=== PATIENT | female | born 1960 | race Caucasian/White ===

== ENCOUNTER 2019-11-04 01:20 | Emergency (ER) | payer MEDICARE, MEDICAID ==
[~2019-11-04] VITALS: Ht 144.8 cm; Wt 76.8 kg
[~2019-11-04 01:20] MED LIST: ALBU18HF2 INH; BUDE10.2 INH; IPRA3AMP31 IH; LOSA25TA96 PO; ONDA4TAB6 PO; SIME125C43 PO
[2019-11-04 01:22] VITALS: BP 171/86
[2019-11-04] MEDS ORDERED: bisacodyl 10mg suppository rectal RC STA (01:54)
[2019-11-04] MEDS ORDERED: magnesium citrate 296ml oral solution PO ONE (01:55)
[2019-11-04] MEDS ORDERED: dexamethasone 4mg tablet PO ONE (01:55)
[2019-11-04] MEDS ORDERED: ALBU6.7H9 INH (01:57)
[2019-11-04] MEDS ORDERED: PRED20TA PO (01:57)
[2019-11-04] MEDS ORDERED: BISA10SU60 RC (01:57)
[2019-11-04] MEDS ORDERED: albuterol 2.5 MG/3 ML nebule CONTNEB PRN ×2 (02:00→02:20)
[2019-11-04] MEDS ORDERED: POLY17PO10 PO (02:11)
== END 2019-11-04 02:30 | disposition home or self-care (01) ==
LOC: ER 01:21
DX: K59.00 Constipation, unspecified (principal); J45.901 Unspecified asthma with (acute) exacerbation; I10 Essential (primary) hypertension; K21.9 Gastro-esophageal reflux disease without esophagitis; Z90.49 Acquired absence of other specified parts of digestive tract; Z98.890 Other specified postprocedural states; Z91.013 Allergy to seafood; Z79.899 Other long term (current) drug therapy
CPT/HCPCS: 74018; 99284

== ENCOUNTER 2019-12-09 20:09 | Emergency (ER) | payer MEDICARE, MEDICAID ==
[~2019-12-09] VITALS: Ht 144.8 cm; Wt 79.5 kg
[~2019-12-09 20:09] MED LIST changes: +ALBU6.7H9 INH; +BISA10SU60 RC
[2019-12-09 20:42] LABS: D-DIMER 0.37 MG/L FEU (0-0.50)
[2019-12-09 20:57] LABS: ALANINE AMINOTRANSFERASE 59 U/L (12-78); ALBUMIN 3.9 G/DL (3.4-5.0); ALKALINE PHOSPHATASE 80 IU/L (46-116); ANION GAP 9 (8-16); ASPARTATE AMINO TRANSFERASE 40 U/L (10-37); BILIRUBIN,TOTAL 0.6 MG/DL (0.1-1.0); BLOOD UREA NITROGEN 11 MG/DL (7-18); BUN/CREATININE RATIO 12.2 (6.6-38.0); CALCIUM 9.4 MG/DL (8.5-10.1); CHLORIDE 96 MMOL/L (99-107); GLUCOSE 93 MG/DL (70-104); SODIUM 134 MMOL/L (135-145); TOTAL CARBON DIOXIDE 29.2 MMOL/L (24-32); TOTAL PROTEIN 7.8 G/DL (6.4-8.2); eGFR 64 ML/MIN
[2019-12-09 21:00] LABS: POTASSIUM 2.7 MMOL/L (3.5-5.1)
[2019-12-09 21:21] LABS: BASOPHILS # (AUTO) 0.1 X10'3 (0-0.2); BASOPHILS % (AUTO) 1.4 % (0-1); EOSINOPHILS # (AUTO) 0.1 X10'3 (0-0.9); EOSINOPHILS % (AUTO) 1.4 % (0-6); HEMATOCRIT 45.3 % (35.0-45.0); HEMOGLOBIN 15.9 g/dl (12.0-16.0); LYMPHOCYTES # (AUTO) 2.1 X10'3 (1.1-4.8); LYMPHOCYTES % (AUTO) 34.2 % (21-51); MEAN CORPUSCULAR HEMOGLOBIN 31.1 PG (27.0-31.0); MEAN CORPUSCULAR HGB CONC 35.1 g/dL (33.0-36.5); MEAN CORPUSCULAR VOLUME 88.6 FL (78-98); MEAN PLATELET VOLUME 9.7 FL (7.4-10.4); MONOCYTES # (AUTO) 0.7 X10'3 (0-0.9); MONOCYTES % (AUTO) 10.7 % (2-12); NEUTROPHILS # (AUTO) 3.3 X10'3 (1.8-7.7); NEUTROPHILS % (AUTO) 52.3 % (42-75); PLATELET COUNT 232 X10'3 (140-440); RED BLOOD COUNT 5.11 X10'6 (4.20-5.60); RED CELL DISTRIBUTION WIDTH 13.4 % (11.5-14.5); WHITE BLOOD COUNT 6.2 X10'3 (4.5-11.0)
[2019-12-09] MEDS ORDERED: potassium Cl 20 mEq SR tablet PO ONE (21:30)
[2019-12-09] MEDS ORDERED: magnesium oxide 400mg tablet PO ONE ×2 (21:30→21:55)
[2019-12-09] MEDS ORDERED: potassium Cl 20 mEq SR tablet PO STA (21:55)
[2019-12-09] MEDS ORDERED: POTASSIUM BICARB 20meq eff tab 20 MEQ TABLET.EFF PO STA (22:00)
[2019-12-09] MEDS ORDERED: POTA20TA19 PO (22:20)
[2019-12-09 22:47] VITALS: BP 136/77
== END 2019-12-09 22:54 | disposition home or self-care (01) ==
LOC: ER 20:10
DX: R00.2 Palpitations (principal); E87.6 Hypokalemia; J06.9 Acute upper respiratory infection, unspecified; I10 Essential (primary) hypertension; J45.909 Unspecified asthma, uncomplicated; K21.9 Gastro-esophageal reflux disease without esophagitis; Z90.49 Acquired absence of other specified parts of digestive tract; Z98.890 Other specified postprocedural states; Z91.013 Allergy to seafood; Z79.899 Other long term (current) drug therapy
CPT/HCPCS: 36415; 71045; 80053; 83735; 84439; 84443; 84484; 85025; 85379; 93005; 99284

== ENCOUNTER 2020-11-04 17:50 | Emergency (ER) | payer MEDICAID, MEDICARE ==
[~2020-11-04] VITALS: Ht 144.8 cm; Wt 76.4 kg
[2020-11-04 18:07] VITALS: BP 166/77
[2020-11-04 18:47] LABS: COLOR,URINE STRAW (Yellow); GLUCOSE, URINE NEGATIVE (Neg); KETONES,URINE NEGATIVE (Neg); LEUKOCYTE ESTERASE ,URINE SMALL (Neg); NITRITES, URINE NEGATIVE (Neg); OCCULT BLOOD,URINE NEGATIVE (Neg); PH,URINE 7.5 (4.8-8.0); PROTEIN,URINE NEGATIVE (Neg); UROBILINOGEN,URINE 0.2 E.U/dL (0.2-1.0)
[2020-11-04 18:49] LABS: CLARITY,URINE SLIGHTLY CLOUDY (Clear); UA COLLECTION TYPE CLN CATCH MIDSTREAM
[2020-11-04 18:54] LABS: BACTERIA,URINE FEW /HPF (Neg); MUCUS STRANDS FEW /LPF (Neg); RBC,URINE NONE SEEN /HPF (0-2); SQUAMOUS EPITHELIAL CELL,UR MANY /LPF (FEW); WBC,URINE 0-4 /HPF (0-4)
[2020-11-04] MEDS ORDERED: ketorolac tromethamine 15mg/ml inj. IM ONE (19:10)
[2020-11-04 19:41] LABS: BASOPHILS # (AUTO) 0.1 X10'3 (0-0.2); EOSINOPHILS # (AUTO) 0.3 X10'3 (0-0.9); EOSINOPHILS % (AUTO) 3.8 % (0-6); HEMATOCRIT 43.8 % (35.0-45.0); LYMPHOCYTES # (AUTO) 1.9 X10'3 (1.1-4.8); LYMPHOCYTES % (AUTO) 27.1 % (21-51); MEAN CORPUSCULAR HEMOGLOBIN 31.2 PG (27.0-31.0); MEAN CORPUSCULAR HGB CONC 34.4 g/dL (33.0-36.5); MEAN CORPUSCULAR VOLUME 90.7 FL (78-98); MEAN PLATELET VOLUME 9.5 FL (7.4-10.4); MONOCYTES # (AUTO) 0.5 X10'3 (0-0.9); MONOCYTES % (AUTO) 6.5 % (2-12); NEUTROPHILS # (AUTO) 4.4 X10'3 (1.8-7.7); NEUTROPHILS % (AUTO) 61.6 % (42-75); PLATELET COUNT 272 X10'3 (140-440); RED BLOOD COUNT 4.83 X10'6 (4.20-5.60); RED CELL DISTRIBUTION WIDTH 12.5 % (11.5-14.5); WHITE BLOOD COUNT 7.1 X10'3 (4.5-11.0)
[2020-11-04 19:53] LABS: ALANINE AMINOTRANSFERASE 70 U/L (12-78); ALBUMIN 4.1 G/DL (3.4-5.0); ALBUMIN/GLOBULIN RATIO 1.1 (1.1-1.5); ALKALINE PHOSPHATASE 86 IU/L (46-116); ANION GAP 7 (8-16); ASPARTATE AMINO TRANSFERASE 23 U/L (10-37); BILIRUBIN,TOTAL 0.3 MG/DL (0.1-1.0); BLOOD UREA NITROGEN 9 MG/DL (7-18); BUN/CREATININE RATIO 8.3 (6.6-38.0); CALCIUM 9.8 MG/DL (8.5-10.1); CHLORIDE 105 MMOL/L (99-107); CREATININE 1.09 MG/DL (0.40-0.90); GLUCOSE 113 MG/DL (70-104); POTASSIUM 3.5 MMOL/L (3.5-5.1); SODIUM 144 MMOL/L (135-145); TOTAL CARBON DIOXIDE 31.9 MMOL/L (24-32); TOTAL PROTEIN 7.8 G/DL (6.4-8.2); eGFR 51 ML/MIN
[2020-11-04 20:21] LABS: CLARITY,URINE CLEAR (Clear); COLOR,URINE YELLOW (Yellow); GLUCOSE, URINE NEGATIVE (Neg); KETONES,URINE NEGATIVE (Neg); LEUKOCYTE ESTERASE ,URINE TRACE (Neg); NITRITES, URINE NEGATIVE (Neg); OCCULT BLOOD,URINE NEGATIVE (Neg); PH,URINE 7.5 (4.8-8.0); PROTEIN,URINE NEGATIVE (Neg); UA COLLECTION TYPE CLN CATCH MIDSTREAM; UROBILINOGEN,URINE 0.2 E.U/dL (0.2-1.0)
[2020-11-04 20:33] LABS: AMORPHOUS PHOSPHATES 1+; BACTERIA,URINE FEW /HPF (Neg); MUCUS STRANDS NONE SEEN /LPF (Neg); RBC,URINE 0-2 /HPF (0-2); SQUAMOUS EPITHELIAL CELL,UR FEW /LPF (FEW); WBC,URINE 0-4 /HPF (0-4)
== END 2020-11-04 20:45 | disposition home or self-care (01) ==
LOC: ER 17:51
DX: R10.84 Generalized abdominal pain (principal); M54.5 Low back pain; I10 Essential (primary) hypertension; J45.909 Unspecified asthma, uncomplicated; K21.9 Gastro-esophageal reflux disease without esophagitis; Z90.89 Acquired absence of other organs; Z98.890 Other specified postprocedural states; Z91.013 Allergy to seafood; Z79.899 Other long term (current) drug therapy
CPT/HCPCS: 36415; 74176; 80053; 81001; 85025; 87088; 99284

== ENCOUNTER 2021-03-31 09:36 | Emergency (ER) | payer BC, MEDICARE, SELFPAY ==
[~2021-03-31] VITALS: Ht 144.8 cm; Wt 155.0 kg
--- NOTE | 2021-03-31 10:04 | NUR ---
TO XRAY WITH CARLOS ROLAND
[2021-03-31] MEDS ORDERED: BUPIVAcaine/PF 2.5 mg/ml (0.25%) 30ml vial IJ ONE (10:40)
[2021-03-31] MEDS ORDERED: BUPIVAcaine/PF 2.5mg/ml (0.25%) 10ml vial IJ ONE (10:45)
[2021-03-31] MEDS ORDERED: ketorolac tromethamine 15mg/ml inj. IM ONE (10:45)
[2021-03-31 10:56] LABS: HEMOGLOBIN 14.9 g/dl (12.0-16.0); PLATELET COUNT 243 X10'3 (140-440)
[2021-03-31 10:59] LABS: BASOPHILS # (AUTO) 0.1 X10'3 (0-0.2); BASOPHILS % (AUTO) 0.8 % (0-1); EOSINOPHILS # (AUTO) 0.2 X10'3 (0-0.9); EOSINOPHILS % (AUTO) 3.6 % (0-6); HEMATOCRIT 42.8 % (35.0-45.0); LYMPHOCYTES % (AUTO) 15.1 % (21-51); MEAN CORPUSCULAR HEMOGLOBIN 32.2 PG (27.0-31.0); MEAN CORPUSCULAR HGB CONC 34.7 g/dL (33.0-36.5); MEAN CORPUSCULAR VOLUME 92.7 FL (78-98); MEAN PLATELET VOLUME 9.1 FL (7.4-10.4); MONOCYTES # (AUTO) 0.3 X10'3 (0-0.9); MONOCYTES % (AUTO) 4.6 % (2-12); NEUTROPHILS # (AUTO) 5.1 X10'3 (1.8-7.7); NEUTROPHILS % (AUTO) 75.9 % (42-75); RED BLOOD COUNT 4.62 X10'6 (4.20-5.60); RED CELL DISTRIBUTION WIDTH 12.9 % (11.5-14.5); WHITE BLOOD COUNT 6.7 X10'3 (4.5-11.0)
[2021-03-31 11:08] VITALS: BP 150/85
[2021-03-31 11:11] LABS: ALANINE AMINOTRANSFERASE 56 U/L (12-78); ALBUMIN 3.7 G/DL (3.4-5.0); ALBUMIN/GLOBULIN RATIO 1.1 (1.1-1.5); ALKALINE PHOSPHATASE 79 IU/L (46-116); ANION GAP 9 (8-16); ASPARTATE AMINO TRANSFERASE 29 U/L (10-37); BILIRUBIN,TOTAL 0.5 MG/DL (0.1-1.0); BLOOD UREA NITROGEN 12 MG/DL (7-18); BUN/CREATININE RATIO 15.6 (6.6-38.0); CALCIUM 9.1 MG/DL (8.5-10.1); CHLORIDE 105 MMOL/L (99-107); CREATININE 0.77 MG/DL (0.40-0.90); GLUCOSE 117 MG/DL (70-104); POTASSIUM 3.9 MMOL/L (3.5-5.1); SODIUM 143 MMOL/L (135-145); TOTAL CARBON DIOXIDE 28.8 MMOL/L (24-32); eGFR 76 ML/MIN
[2021-03-31 11:14] LABS: TROPONIN I < 0.04 NG/ML (0.0-0.05)
--- NOTE | 2021-03-31 12:34 | NUR ---
Right arm sling applied to patient with instructions on adjustments.
[2021-03-31] MEDS ORDERED: HYDR-3965 PO (12:55)
== END 2021-03-31 13:06 | disposition home or self-care (01) ==
LOC: ER 09:36
DX: T14.8XXA Other injury of unspecified body region, initial encounter (principal); M54.5 Low back pain; I10 Essential (primary) hypertension; J45.909 Unspecified asthma, uncomplicated; K21.9 Gastro-esophageal reflux disease without esophagitis; Z90.89 Acquired absence of other organs; Z98.890 Other specified postprocedural states; Z91.013 Allergy to seafood; Z79.899 Other long term (current) drug therapy; W01.0XXA Fall on same level from slipping, tripping and stumbling without subsequent striking against object, initial encounter; Y93.01 Activity, walking, marching and hiking; Y92.89 Other specified places as the place of occurrence of the external cause; Y99.8 Other external cause status
CPT/HCPCS: 20553; 36415; 71046; 73030; 73090; 80053; 84484; 85025; 85610; 93005; 96372; 99285; J1885

== ENCOUNTER 2023-05-08 01:06 | Emergency (ER) | payer BC, SELFPAY ==
[~2023-05-08] VITALS: Ht 170.2 cm; Wt 72.7 kg
[~2023-05-08 01:06] MED LIST changes: +ALBU6.7H14 INH; -ALBU6.7H9 INH
[2023-05-08 01:33] LABS: BASOPHILS # (AUTO) 0.1 X10'3 (0-0.2); BASOPHILS % (AUTO) 0.9 % (0-1); EOSINOPHILS # (AUTO) 0.5 X10'3 (0-0.9); EOSINOPHILS % (AUTO) 6.8 % (0-6); HEMOGLOBIN 15.8 g/dl (12.0-16.0); LYMPHOCYTES # (AUTO) 2.1 X10'3 (1.1-4.8); LYMPHOCYTES % (AUTO) 27.3 % (21-51); MEAN CORPUSCULAR HEMOGLOBIN 31.3 PG (27.0-31.0); MEAN CORPUSCULAR HGB CONC 34.4 g/dL (33.0-36.5); MEAN PLATELET VOLUME 8.6 FL (7.4-10.4); MONOCYTES # (AUTO) 0.5 X10'3 (0-0.9); MONOCYTES % (AUTO) 5.9 % (2-12); NEUTROPHILS # (AUTO) 4.6 X10'3 (1.8-7.7); NEUTROPHILS % (AUTO) 59.1 % (42-75); PLATELET COUNT 230 X10'3 (140-440); RED BLOOD COUNT 5.05 X10'6 (4.20-5.60); WHITE BLOOD COUNT 7.8 X10'3 (4.5-11.0)
[2023-05-08] MEDS ORDERED: normal saline 1000ML IV soln IVB ONE (01:35)
[2023-05-08] MEDS ORDERED: morphine 4 MG/ML inj SYRINge IV ONE (01:35)
[2023-05-08 01:39] LABS: ALANINE AMINOTRANSFERASE 40 U/L (12-78); ALKALINE PHOSPHATASE 98 IU/L (46-116); ANION GAP 12 (8-16); ASPARTATE AMINO TRANSFERASE 20 U/L (10-37); BILIRUBIN,TOTAL 0.5 MG/DL (0.1-1.0); BLOOD UREA NITROGEN 11 MG/DL (7-18); BUN/CREATININE RATIO 13.6 (10.0-20.0); CALCIUM 9.2 MG/DL (8.5-10.1); CHLORIDE 104 MMOL/L (99-107); CREATININE 0.81 MG/DL (0.40-0.90); GLUCOSE 111 MG/DL (70-104); LIPASE 123 U/L (73-393); POTASSIUM 3.6 MMOL/L (3.5-5.1); SODIUM 143 MMOL/L (135-145); TOTAL CARBON DIOXIDE 26.8 MMOL/L (24-32); TOTAL PROTEIN 7.9 G/DL (6.4-8.2); eGFR 71 ML/MIN
[2023-05-08] MEDS ORDERED: iohexol 300mg/ml 100ml inj. ONE (01:53)
--- NOTE | 2023-05-08 02:00 | NUR ---
Patient to CT
[2023-05-08 02:34] LABS: CLARITY,URINE SLIGHTLY CLOUDY (Clear); COLOR,URINE STRAW (Yellow); GLUCOSE, URINE NEGATIVE (Neg); KETONES,URINE NEGATIVE (Neg); LEUKOCYTE ESTERASE ,URINE NEGATIVE (Neg); NITRITES, URINE NEGATIVE (Neg); OCCULT BLOOD,URINE NEGATIVE (Neg); PH,URINE 7.5 (4.8-8.0); PROTEIN,URINE NEGATIVE (Neg); UROBILINOGEN,URINE 0.2 E.U/dL (0.2-1.0)
[2023-05-08 02:43] LABS: UA COLLECTION TYPE CLN CATCH MIDSTREAM
[2023-05-08 02:44] LABS: BACTERIA,URINE NONE SEEN /HPF (Neg); RBC,URINE 0-2 /HPF (0-2); SQUAMOUS EPITHELIAL CELL,UR MANY /LPF (FEW); TRANSITIONAL EPI CELLS,URINE FEW /HPF; WBC,URINE 0-4 /HPF (0-4)
[2023-05-08 04:39] VITALS: BP 159/89
== END 2023-05-08 04:42 | disposition home or self-care (01) ==
LOC: ER 03:27
DX: R10.32 Left lower quadrant pain (principal); M54.2 Cervicalgia; R14.0 Abdominal distension (gaseous); J45.909 Unspecified asthma, uncomplicated; K21.9 Gastro-esophageal reflux disease without esophagitis; I10 Essential (primary) hypertension; Z90.49 Acquired absence of other specified parts of digestive tract; Z91.013 Allergy to seafood; Z79.899 Other long term (current) drug therapy
CPT/HCPCS: 36415; 74177; 80053; 81001; 83690; 85025; 96360; 99285; J3490; J7030; Q9967

== ENCOUNTER 2023-11-06 15:39 | Emergency (ER) | payer BC, SELFPAY ==
[~2023-11-06] VITALS: Ht 175.3 cm; Wt 72.7 kg
[~2023-11-06 15:39] MED LIST changes: +LOSA-415 PO; -LOSA25TA96 PO
[2023-11-06 16:02] VITALS: TEMP 97
[2023-11-06 18:03] VITALS: BP 157/88; PULSE 77; RESP 16; O2SAT 98
== END 2023-11-06 18:05 | disposition home or self-care (01) ==
LOC: ER 15:40
DX: R09.A2 Foreign body sensation, throat (principal); R09.89 Other specified symptoms and signs involving the circulatory and respiratory systems; I10 Essential (primary) hypertension; J45.909 Unspecified asthma, uncomplicated; Z90.49 Acquired absence of other specified parts of digestive tract; Z91.013 Allergy to seafood; Z79.899 Other long term (current) drug therapy
CPT/HCPCS: 70360; 99283

== ENCOUNTER 2025-03-12 16:52 | Emergency (ER) | payer BC, SELFPAY ==
[~2025-03-12] VITALS: Ht 144.8 cm; Wt 70.5 kg
--- NOTE | 2025-03-12 16:58 | ELECTROCARDIOGRAPH REPORT ---
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 Saman Chester Measurements Intervals [place] Rate: 90 P: 54 PA: 177 QRS: 40 QRSD: 84 T: 57 QT: 344 QTc: 421 Interpretive Statements Sinus rhythm Anterior infarct, old Electronically Signed On 03-12-2025 18:39:[address] Saman Chester Please click the below link to view image of tracing.
--- NOTE | 2025-03-12 17:42 | RADIOLOGY REPORT ---
CHEST RADIOGRAPH Indication: CP Technique: Single frontal view of the chest was obtained Comparison: CHEST,SINGLE VIEW on DOS: 12/09/19 FINDINGS: Lines and Tubes: None Lungs: No focal consolidation. Pleura: No effusion. No pneumothorax. Cardiomediastinal contours: Unremarkable Bones: No acute osseous abnormality. IMPRESSION: 1. No acute cardiopulmonary disease. 2. No significant change from 03/31/2021.
[2025-03-12 18:04] LABS: BASOPHILS # (AUTO) 0.1 X10'3 (0-0.2); EOSINOPHILS # (AUTO) 0.4 X10'3 (0-0.9); EOSINOPHILS % (AUTO) 5.1 % (0-6); HEMATOCRIT 42.8 % (35.0-45.0); HEMOGLOBIN 14.7 g/dl (12.0-16.0); LYMPHOCYTES # (AUTO) 2.3 X10'3 (1.1-4.8); LYMPHOCYTES % (AUTO) 27.6 % (21-51); MEAN CORPUSCULAR HEMOGLOBIN 31.4 PG (27.0-31.0); MEAN CORPUSCULAR HGB CONC 34.3 g/dL (33.0-36.5); MEAN CORPUSCULAR VOLUME 91.5 FL (78-98); MONOCYTES # (AUTO) 0.5 X10'3 (0-0.9); MONOCYTES % (AUTO) 5.7 % (2-12); NEUTROPHILS % (AUTO) 60.6 % (42-75); PLATELET COUNT 329 X10'3 (140-440); RED BLOOD COUNT 4.68 X10'6 (4.20-5.60); RED CELL DISTRIBUTION WIDTH 13.1 % (11.5-14.5); WHITE BLOOD COUNT 8.3 X10'3 (4.5-11.0)
[2025-03-12 18:12] LABS: ALANINE AMINOTRANSFERASE 43 U/L (12-78); ALBUMIN 3.8 G/DL (3.4-5.0); ALBUMIN/GLOBULIN RATIO 1.1 (1.1-1.5); ALKALINE PHOSPHATASE 119 IU/L (46-116); ANION GAP 6 (8-16); ASPARTATE AMINO TRANSFERASE 36 U/L (10-37); BILIRUBIN,TOTAL 0.5 MG/DL (0.1-1.0); BLOOD UREA NITROGEN 7 MG/DL (7-18); BUN/CREATININE RATIO 10.3 (10.0-20.0); CALCIUM 8.9 MG/DL (8.5-10.1); CHLORIDE 99 MMOL/L (99-107); CREATININE 0.68 MG/DL (0.40-0.90); GLUCOSE 98 MG/DL (70-104); SODIUM 134 MMOL/L (135-145); TOTAL CARBON DIOXIDE 29.5 MMOL/L (24-32); TOTAL PROTEIN 7.3 G/DL (6.4-8.2); eCRCL 50 ML/MIN; eGFR 87 ML/MIN
[2025-03-12 18:21] LABS: PRO BRAIN NATRIURETIC PEPTIDE < 30 PG/ML (0-125)
--- NOTE | 2025-03-12 21:10 | Physician Documentation ---
History of Present Illness ~ Chief Complaint: Irregular Heartbeat Stated Complaint: HEART PALPITATIONS Time Seen by MD: 20:24 OK to notify your PCP?: Yes Primary Medical Doctor: Dr. Jhaveri Source: patient, RN/MD, RN notes reviewed, old records Mode of Arrival: Ambulatory Exam Limitations: no limitations HPI 64 year old female, with history of hypertension and palpitations for approximately the last year, presents to the ED complaining of increased palpitations described as "flutters" for the last two weeks. Initially she was having symptoms only a few times a day, but yesterday and today has had 30-40 instances of palpitations. She occasionally has some mild shortness of breath and occasional mild sharp left-sided chest pains that last "a second." Patient notes that she has drank approximately 1 gal of water today. She follows with Dr. Holland Stephen who had her wear a Holter monitor last year, with no abnormal findings. She also sees Dr. Tyler, who told her she likely has "an electrical problem. She has never been diagnosed with atrial fibrillation but is taking diltiazem for the palpitations. She does not take a blood thinner and does not take any aspirin. Her last stress test was a couple of years ago. She has never had cardiac catheterization. She occasionally drinks alcohol and has cut out all caffeine over the last few weeks. Medication Reconciliation Allergies: Coded Allergies: shellfish derived (Verified Allergy, Unknown, 03/12/25) tongue/lip/throat swelling Scheduled Albuterol Sulfate (Ventolin Hfa), 2 PUFFS INH Q4HPRN Albuterol Sulfate (Proventil Hfa), 2 PUFFS INH Q6H Bisacodyl (Dulcolax), 1 SUPP RC DAILY Budesonide/Formoterol Fumarate (Symbicort 160-4.5 Mcg Inhaler), 2 PUFFS INH BID Losartan Potassium* (Cozaar*), 25 MG PO DAILY Scheduled PRN Ipratropium/Albuterol Sulfate (Duoneb 2.5-0.5 Mg/3 Ml Soln), 3 ML IH BID PRN for shortness of breath Ondansetron Hcl (Zofran), 1 TAB PO Q6H PRN for nausea/vomiting Simethicone (Gas-X), 125 MG PO TID PRN PRN for gas Past Medical History Past Medical History: Hypertension, Asthma, GERD Past Surgical History: appendectomy, orthopedic surgeries Alcohol Use: None Drug Use: none Lives In: Home Occupation: employed Review of Systems All Other Systems at this time: Reviewed and Negative ROS As stated above in the HPI, otherwise all systems are reviewed and negative. Physical Exam Vital Signs: RN Vital Signs have been reviewed: Yes, Temperature: 98.5, Source: Oral, Heart Rate: 79, Respiratory Rate: 14, BP: 165/79, Pulse Oximetry: 98, Weight: 70.450 Pulse Oximetry Reflects: adequate oxygenation Physical Exam General: The patient is well developed, well nourished, nontoxic appearing and is in no acute distress. Skin: [place], warm and dry with no rashes. HEENT: Head was normocephalic and atraumatic. Chest: Clear to auscultation bilaterally without wheezes, rales or rhonchi. No accessory muscle use. No dullness to percussion. Heart: Rate regular and rhythmic. S1, S2. No murmurs. Palpation of the chest wall was normal. No rubs or thrills. Extremities: No cyanosis, clubbing or edema. The patient moves all extremities. Pulses were equal and symmetric. Neurologic: Motor and sensation grossly intact. Cranial nerves II-XII grossly intact. A & O x4. Psychologic: Normal mood and affect. No agitation. Progress Results/Orders Results/Orders Medications Received in ER Medications (Trade) Dose Ordered Sig/Larry Route PRN Reason Start Time Stop Time Status Last Admin Dose Admin (mag-Ox 400mg tablet) 400 mg ONCE ONCE PO 03/12/25 21:20 03/12/25 21:21 DC 03/12/25 21:29 400 MG Vital Signs 03/12/25 03/12/25 03/12/25 03/12/25 17:16 19:38 19:45 21:38 Temp 98.5 98.5 98.5 Pulse 90 79 73 Resp 18 14 14 14 B/P (MAP) 147/70 165/79 (107) 151/64 Pulse Ox 97 98 99 Laboratory Tests Test 03/12/25 17:32 03/12/25 19:11 03/12/25 20:10 White Blood Count 8.3 Red Blood Count 4.68 Hemoglobin 14.7 Hematocrit 42.8 Mean Corpuscular Volume 91.5 Mean Corpuscular Hemoglobin 31.4 H Mean Corpuscular Hemoglobin Concent 34.3 Red Cell Distribution Width 13.1 Platelet Count 329 Mean Platelet Volume 9.0 Neutrophils (%) (Auto) 60.6 Lymphocytes (%) (Auto) 27.6 Monocytes (%) (Auto) 5.7 Eosinophils (%) (Auto) 5.1 Basophils (%) (Auto) 1.0 Neutrophils # (Auto) 5.0 Lymphocytes # (Auto) 2.3 Monocytes # (Auto) 0.5 Eosinophils # (Auto) 0.4 Basophils # (Auto) 0.1 CBC Comment Sodium Level 134 L Potassium Level 4.0 Chloride Level 99 Carbon Dioxide Level 29.5 Anion Gap 6 L Blood Urea Nitrogen 7 Creatinine 0.68 Estimated GFR/1.73 m2 87 BUN/Creatinine Ratio 10.3 Glucose Level 98 Calcium Level 8.9 Magnesium Level 2.3 Total Bilirubin 0.5 Aspartate Amino Transf (AST/SGOT) 36 Alanine Aminotransferase (ALT/SGPT) 43 Alkaline Phosphatase 119 H Troponin I High Sensitivity 4 < 4 L 4 Pro-B-Type Natriuretic Peptide < 30 Total Protein 7.3 Albumin 3.8 Globulin 3.5 Albumin/Globulin Ratio 1.1 Chemistry Comments Ethyl Alcohol Level < 10 Troponin I High Sens Percent Delta Troponin I Hi Sens Absolute Change EKG/XRAY/CT/US/VASC/MRI EKG : Additional Comment Test Date: 2025-03-12 Test Time: 16:57:03 Pat Name: DARWIN WAKEFIELD Department: EMERGENCY ROOM Room: Gender: F 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 Saman Chester Measurements Intervals [place] Rate: 90 P: 54 AL: 177 QRS: 40 QRSD: 84 T: 57 QT: 344 QTc: 421 Interpretive Statements Sinus rhythm Anterior infarct, old Electronically Signed On 03-12-2025 18:39:[address] Saman Chester (interpreted by ak) Chest X-Ray : Additional Comments CHEST RADIOGRAPH Indication: CP Technique: Single frontal view of the chest was obtained Comparison: CHEST,SINGLE VIEW on DOS: 12/09/19 FINDINGS: Lines and Tubes: None Lungs: No focal consolidation. Pleura: No effusion. No pneumothorax. Cardiomediastinal contours: Unremarkable Bones: No acute osseous abnormality. IMPRESSION: 1. No acute cardiopulmonary disease. 2. No significant change from 03/31/2021. Reviewed by me Departure Time of Disposition: 21:21 Disposition: 01 HOME / SELF CARE / HOMELESS Impression: Primary Impression: Palpitations Condition: Stable Discharge Instructions: Palpitations, [id number] Additional Instructions: Follow up with Dr. Stephen. You may need another holter monitor. Continue your medications. Return to the ER for worsening chest pain, shortness of breath, fever, or any other concerns. Education Educated: Patient Educated regarding: diagnosis, treatment, need for follow up Signature Scribe Signature: Scribed for Saman Chester MD by Ernesto Hung . 03/12/25 21:20 Attestation: The note accurately reflects work and decisions made by me.Saman Chester MD 03/12/25 21:10 SAMAN CHESTER MD March 12, 2025 21:10 ERNESTO OTT March 12, 2025 21:23
[2025-03-12] MEDS: magnesium oxide 400mg tablet PO ONE (21:29)
[2025-03-12 21:38] VITALS: BP 151/64; PULSE 73; RESP 14; TEMP 98.5; O2SAT 99
[2025-03-12 21:41] LABS: MAGNESIUM 2.3 MG/DL (1.5-2.4)
[2025-03-12 21:47] LABS: ETHANOL < 10 MG/DL (<10)
== END 2025-03-12 21:33 | disposition home or self-care (01) ==
LOC: ER 16:52
DX: R00.2 Palpitations (principal); J45.909 Unspecified asthma, uncomplicated; I10 Essential (primary) hypertension; K21.9 Gastro-esophageal reflux disease without esophagitis; I25.2 Old myocardial infarction; Z90.49 Acquired absence of other specified parts of digestive tract; Z91.013 Allergy to seafood; Z79.899 Other long term (current) drug therapy
CPT/HCPCS: 36415; 71045; 80053; 80320; 83735; 83880; 84484; 85025; 93005; 99285

== ENCOUNTER 2025-06-07 12:49 | Emergency (ER) | payer BC ==
[~2025-06-07] VITALS: Ht 144.8 cm; Wt 77.3 kg
[2025-06-07 12:52] VITALS: BP 150/83; PULSE 93; O2SAT 99
--- NOTE | 2025-06-07 13:05 | ELECTROCARDIOGRAPH REPORT ---
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 Saman Chester Measurements Intervals [place] Rate: 92 P: 77 PA: 172 QRS: 56 QRSD: 85 T: 50 QT: 347 QTc: 430 Interpretive Statements Atrial-paced complexes Electronically Signed On 06-07-2025 20:10:[address] Saman Chester Please click the below link to view image of tracing.
--- NOTE | 2025-06-07 13:16 | Physician Documentation ---
History of Present Illness ~ Chief Complaint: Mechanical Fall Stated Complaint: FALL Time Seen by MD: 12:58 Primary Medical Doctor: Dr. Jhaveri HPI 64 Pt SLIPPED ON ICE APPROX 30MIN AGO AND FELL TO THE LEFT KNEE AND HIT THE BACK OF HER HEAD. +HS -LOC -BLOODTHINNERS. denies red flag symptoms including numbness tingling saddle anesthesia fevers Day of Fall: Jun 07, 2025 Tetanus within 5 Years?: No Medication Reconciliation Allergies: Coded Allergies: shellfish derived (Verified Allergy, Unknown, 03/12/25) tongue/lip/throat swelling Scheduled Albuterol Sulfate (Ventolin Hfa), 2 PUFFS INH Q4HPRN Albuterol Sulfate (Proventil Hfa), 2 PUFFS INH Q6H Bisacodyl (Dulcolax), 1 SUPP RC DAILY Budesonide/Formoterol Fumarate (Symbicort 160-4.5 Mcg Inhaler), 2 PUFFS INH BID Losartan Potassium* (Cozaar*), 25 MG PO DAILY Scheduled PRN Ipratropium/Albuterol Sulfate (Duoneb 2.5-0.5 Mg/3 Ml Soln), 3 ML IH BID PRN for shortness of breath Ondansetron Hcl (Zofran), 1 TAB PO Q6H PRN for nausea/vomiting Simethicone (Gas-X), 125 MG PO TID PRN PRN for gas Past Medical History Past Medical History: Hypertension, Asthma, GERD Past Surgical History: appendectomy, orthopedic surgeries Alcohol Use: None Drug Use: none Lives In: Home Occupation: employed Review of Systems All Other Systems at this time: Reviewed and Negative ROS As stated above in the HPI, otherwise all systems are reviewed and negative. Physical Exam Vital Signs: Temperature: 98.7, Source: Oral, Heart Rate: 93, Respiratory Rate: 18, BP: 150/83, Pulse Oximetry: 99, Weight: 77.270 Oxygen Flow Rate: 0 Physical Exam General: Alert, no apparent distress. back:tender to lumbar region via palpation Chest: No accessory muscle use. Cardiovascular: Regular rate and rhythm, no murmurs. Gastrointestinal: Soft, nontender, nondistended. Bowels sounds present. . Neurologic: Oriented x4. Psychiatric: Normal mood and affect. Skin: Normal color, warm and dry. No edema, no ecchymosis. Progress Results/Orders Results/Orders Orders - AYHIR FIERRO NP Knee, Complete (06/07/25 12:59) Hip Unilateral 2 Views (06/07/25 12:59) Lumbar Spine Limited (06/07/25 12:59) Completed Orders - YAHIR FIERRO NP Knee, Complete (06/07/25 12:59) Hip Unilateral 2 Views (06/07/25 12:59) Electrocardiogram (06/07/25 ) Lumbar Spine Limited (06/07/25 12:59) Ketorolac Trometh 30mg/Ml Vial (Toradol (06/07/25 13:30) Medications Received in ER Medications (Trade) Dose Ordered Sig/Larry Route PRN Reason Start Time Stop Time Status Last Admin Dose Admin (Toradol inj. 30mg/ml) 30 mg ONCE ONCE IM 06/07/25 13:30 06/07/25 13:31 DC 06/07/25 14:19 30 MG Vital Signs 06/07/25 06/07/25 06/07/25 06/07/25 12:52 13:00 14:19 14:24 Temp 98.7 98.7 Pulse 93 Resp 18 18 18 B/P (MAP) 150/83 Pulse Ox 99 O2 Flow Rate 0 Medical Decision Making Findings Patient does not present with any acute fractures nor does see does she had present in [id number] pain. He is to redirect in reports that she is ready to go home. I did provide her with a Toradol shot.. She can follow up in the outpatient setting Differential Dx:Considerations: Include: Closed head injury, Cardiac injury, Fracture(s), Intraabdominal injury, Pneumothorax, Cerebral contusion, Pulmonary contusion, Spine injury, Tracheal injury, Urological injury, Vascular injury, Abrasion(s), Contusion(s), Foreign body(s), Hematoma(s), Laceration(s), Encephalopathy, Other Departure Disposition: 01 HOME / SELF CARE / HOMELESS Impression: Primary Impression: Fall Condition: Stable Discharge Instructions: Fall Prevention in the Home, Adult, [id number] Referrals: NO PRIMARY CARE PROVIDER (PCP) Signature Scribe Signature: amado Attestation: Scribed for Yahir Fierro Director Of Anesthesia Services by Yahir Chapman NP . 06/07/25 14:02 YAHIR FIERRO NP Jun 07, 2025 13:16
--- NOTE | 2025-06-07 13:36 | RADIOLOGY REPORT ---
X-ray lumbar spine Technique AP and lateral and coned-down lateral views INDICATION: BACK PAIN FINDINGS: Loss of height along the superior L2 vertebral body endplate. Disc space narrowing at L4-5 and L5-S1 IMPRESSION: 1. Old appearing compression fracture along the superior L2 vertebral body endplate. This was present on old CT study done 05/08/2023 2. Degenerative disc disease at L4-5 and L5-S1
--- NOTE | 2025-06-07 13:37 | RADIOLOGY REPORT ---
EXAM: DI HIP UNILATERAL 2 VIEWS CLINICAL INDICATION: HIP PAIN TECHNIQUE: DI HIP UNILATERAL 2 VIEWS Comparison: None FINDINGS/IMPRESSION: There is no evidence of acute fracture or dislocation. Moderate bilateral hip osteoarthritis. The alignment is anatomical. There is no radiopaque foreign body.
--- NOTE | 2025-06-07 13:37 | RADIOLOGY REPORT ---
EXAM: DI KNEE, COMP 4 VW MIN CLINICAL INDICATION: KNEE PAIN TECHNIQUE: DI KNEE, COMP 4 VW MIN Comparison: None FINDINGS/IMPRESSION: There is no evidence of acute fracture or dislocation. Moderate left knee osteoarthritis. Chondrocalcinosis The alignment is anatomical. There is no radiopaque foreign body.
[2025-06-07 14:19] VITALS: RESP 18
[2025-06-07] MEDS: ketorolac trometh 30MG/ML vial 30 MG/ML VIAL IM ONE (14:19)
[2025-06-07 14:24] VITALS: TEMP 98.7
== END 2025-06-07 14:27 | disposition home or self-care (01) ==
LOC: ER 12:50
DX: M25.562 Pain in left knee (principal); I10 Essential (primary) hypertension; J45.909 Unspecified asthma, uncomplicated; K21.9 Gastro-esophageal reflux disease without esophagitis; Z91.013 Allergy to seafood; Z90.49 Acquired absence of other specified parts of digestive tract; W00.0XXA Fall on same level due to ice and snow, initial encounter; Y93.89 Activity, other specified; Y92.89 Other specified places as the place of occurrence of the external cause; Y99.8 Other external cause status
CPT/HCPCS: 72100; 73502; 73564; 93005; 96372; 99284; J1885